=== PATIENT | male | born 1985 ===

== ENCOUNTER 2024-07-19 14:08 | Emergency (ER) | payer OTHER, BC ==
[~2024-07-19] VITALS: Ht 175.3 cm; Wt 81.7 kg
[~2024-07-19 14:08] MED LIST: IBUP200; NAPR500 PO; PHENY100ER PO; TRAM50 PO
[2024-07-19 14:32] VITALS: BP 109/67
[2024-07-19] MEDS ORDERED: HYDROcodone 5-APAP 325 TAB PO ONE (15:25)
[2024-07-19] MEDS ORDERED: Ibuprofen 400 MG Tab PO ONE ×2 (15:30→15:45)
[2024-07-19] MEDS ORDERED: Diphth,Pertuss(Acell),Tet Vac 0.5 ML VIAL IM ONE (16:25)
[2024-07-19] MEDS ORDERED: Norco 5-325 Ta1 EACH PO (16:27)
[2024-07-19] MEDS ORDERED: CEPH500 PO (16:27)
== END 2024-07-19 16:56 | disposition home or self-care (01) ==
LOC: ER 14:08
DX: S62.633B Displaced fracture of distal phalanx of left middle finger, initial encounter for open fracture (principal); S62.635B Displaced fracture of distal phalanx of left ring finger, initial encounter for open fracture; W20.8XXA Other cause of strike by thrown, projected or falling object, initial encounter
CPT/HCPCS: 73130; 90715; A9270

== ENCOUNTER 2024-07-27 07:50 | Emergency (ER) | payer OTHER, BC ==
[~2024-07-27] VITALS: Ht 175.3 cm; Wt 86.2 kg
[~2024-07-27 07:50] MED LIST changes: +CEPH500 PO; +Norco 5-325 Ta1 EACH PO
[2024-07-27 08:02] VITALS: BP 127/79
== END 2024-07-27 09:57 | disposition home or self-care (01) ==
LOC: ER 07:50
DX: S62.633D Displaced fracture of distal phalanx of left middle finger, subsequent encounter for fracture with routine healing (principal); S62.635D Displaced fracture of distal phalanx of left ring finger, subsequent encounter for fracture with routine healing; W31.82XD Contact with other commercial machinery, subsequent encounter; Y92.89 Other specified places as the place of occurrence of the external cause; Y99.0 Civilian activity done for income or pay; Z59.89 Other problems related to housing and economic circumstances
CPT/HCPCS: 73120; 99282-25